=== PATIENT | female | born 1990 | race Caucasian/White ===

== ENCOUNTER → 2016-03-14 | Outpatient (REF) | payer OTHER ==
[2016-03-14 15:15] LABS: BILIRUBIN,URINE Negative (Negative); COLOR,URINE Yellow; GLUCOSE, URINE (UA) Negative (Negative); LEUKOCYTE ESTERASE ,URINE Negative (Negative); PH,URINE 5.5 (5.0 - 8.0); UROBILINOGEN,URINE 0.2 mg/dL (0.2-1.0)
[2016-03-14 15:44] LABS: CLARITY,URINE Slightly Cloudy
[2016-03-14 19:10] LABS: URINE CENTRIFUGED VOLUME 12 mL
== END ==
LOC: LAB 14:29
PROVIDERS: ATTEND Nurse Practitioner Family
DX: R31.29 Other microscopic hematuria (principal)
CPT/HCPCS: 81003; 81015

== ENCOUNTER → 2016-03-24 | Outpatient (REF) | payer OTHER ==
[~2016-03-24] MED LIST: ABAT250V IV; DOXY40CP4 PO; EPIN0.3P2 IM; HYDR200T PO; METH4TAB27 PO; MNTL10T PO
[2016-03-24 11:29] LABS: BILIRUBIN,URINE Negative (Negative); CLARITY,URINE Clear; COLOR,URINE Yellow; GLUCOSE, URINE (UA) Negative (Negative); LEUKOCYTE ESTERASE, URINE Negative (Negative); PH,URINE 5.5 (5.0 - 8.0); UROBILINOGEN,URINE 0.2 mg/dL (0.2-1.0)
[2016-03-24 11:56] LABS: URINE CENTRIFUGED VOLUME 12 mL
== END ==
LOC: LAB 11:11
PROVIDERS: ATTEND Nurse Practitioner Family
DX: R31.29 Other microscopic hematuria (principal)
CPT/HCPCS: 81003; 81015; 87088

== ENCOUNTER → 2016-04-17 | Outpatient (CLI) | payer OTHER | LOC: RAD 06:56 | PROVIDERS: ATTEND Nurse Practitioner Family | DX: R93.8 Abnormal findings on diagnostic imaging of other specified body structures (principal) | CPT/HCPCS: 71270; Q9967 ==

== ENCOUNTER → 2016-04-23 | Outpatient (CLI) | payer OTHER ==
[2016-04-23 16:46] LABS: BASOPHILS % (AUTO) 0 % (0-2); EOSINOPHILS # (AUTO) 1.3 10^3uL; EOSINOPHILS % (AUTO) 11 % (0-4); LYMPHOCYTES # (AUTO) 3.1 X10^3; MEAN CORPUSCULAR HEMOGLOBIN 31.1 PG (26.0-34.0); MEAN CORPUSCULAR HGB CONC 34.4 g/dL (31.0-37.0); MEAN CORPUSCULAR VOLUME 90 FL (80-100); MEAN PLATELET VOLUME 9.9 FL (6.0-9.5); MONOCYTES # (AUTO) 0.8 X10^3; MONOCYTES % (AUTO) 7 % (3-11); NEUTROPHILS # (AUTO) 6.3 X10^3; NEUTROPHILS % (AUTO) 55 % (51-67); PLATELET COUNT 284 10^3uL (150-450); WHITE BLOOD COUNT 11.48 10^3uL (4.0-11.0)
== END ==
LOC: LAB 16:34
PROVIDERS: ATTEND Family Medicine
DX: R59.0 Localized enlarged lymph nodes (principal); R31.29 Other microscopic hematuria
CPT/HCPCS: 36415; 83615; 85025

== ENCOUNTER → 2016-06-13 | Outpatient (CLI) | payer OTHER ==
[2016-06-13 15:48] LABS: BASOPHILS % (AUTO) 0 % (0-2); EOSINOPHILS # (AUTO) 0.8 10^3uL; EOSINOPHILS % (AUTO) 7 % (0-4); MEAN CORPUSCULAR HEMOGLOBIN 30.2 PG (26.0-34.0); MEAN CORPUSCULAR HGB CONC 33.3 g/dL (31.0-37.0); MEAN CORPUSCULAR VOLUME 91 FL (80-100); MEAN PLATELET VOLUME 9.9 FL (6.0-9.5); MONOCYTES # (AUTO) 0.8 X10^3; MONOCYTES % (AUTO) 7 % (3-11); NEUTROPHILS # (AUTO) 6.9 X10^3; NEUTROPHILS % (AUTO) 60 % (51-67); PLATELET COUNT 292 10^3uL (150-450); WHITE BLOOD COUNT 11.54 10^3uL (4.0-11.0)
[2016-06-13 16:23] LABS: ALBUMIN 4.2 g/dL (3.4-5.0); ANION GAP 18.7 MEQ/L (3-15); TOTAL PROTEIN 7.4 g/dL (6.4-8.5)
== END ==
LOC: LAB 15:33
PROVIDERS: ATTEND Internal Medicine Hematology & Oncology
DX: R59.1 Generalized enlarged lymph nodes (principal); D72.1 Eosinophilia
CPT/HCPCS: 36415; 80053; 82784; 83520; 83615; 85025

== ENCOUNTER → 2016-06-18 | Outpatient (CLI) | payer OTHER ==
--- NOTE | 2016-06-18 13:47 | Diagnostic Imaging Report ---
CENTRAL LINE INJECTION W FLUOR TECHNIQUE: Fluoroscopy was provided during injection of right IJ Port-A-Cath. 0.9 minutes of fluoroscopy time was utilized for this procedure. INDICATION: No blood return from Port-A-Cath. COMPARISON: CT chest of 04/17/2016. FINDINGS: Preprocedural radiograph demonstrated the right IJ Port-A-Cath to have tip terminating in the upper SVC. The Port-A-Cath was accessed and using hand injection, a total of 20 cc of Omnipaque 300 was injected. Contrast freely opacified the catheter without evidence of catheter fracture. However, there was resistance to contrast injection. Contrast did not freely flow from the tip of the catheter which is indicative of thrombus formation/fibrin sheath. The catheter was flushed with 10 cc of sterile saline. A Heparin lock was placed on the Port-A-Cath. IMPRESSION: 1. Findings compatible with fibrin sheath/thrombus at the tip of the Port-A-Cath. This would account for the ability to inject but not aspirate the Port-A-Cath. Dictated by: Dictated on workstation # [id number]
== END ==
LOC: RAD 11:25
PROVIDERS: ATTEND Internal Medicine Hematology & Oncology
DX: T82.9XXA Unspecified complication of cardiac and vascular prosthetic device, implant and graft, initial encounter (principal)
CPT/HCPCS: 36598; Q9967